=== PATIENT | male | born 1960 | race American Indian/Alaskan Native ===

== ENCOUNTER 2024-12-28 08:38 | Outpatient (CLI) | payer MEDICARE, MEDICAID ==
[~2024-12-28 08:38] MED LIST: CIPR-202 PO; HYDR-3965 PO; LISI20TA28 PO; LOP25T PO; MELOXICAM PO; RIFA300C65 PO; SIMV-42 PO
== END 2024-12-28 23:59 | disposition home or self-care (01) ==
LOC: VAS 08:38
PROVIDERS: ATTEND Family Medicine
DX: I70.0 Atherosclerosis of aorta (principal); Z87.891 Personal history of nicotine dependence
CPT/HCPCS: 93978